=== PATIENT | female | born 1950 | race Caucasian/White ===

== ENCOUNTER 2021-07-18 06:06 | Day surgery (SDC) | payer MEDICARE, OTHER ==
[~2021-07-18] VITALS: Ht 160 cm; Wt 63.0 kg
[~2021-07-18 06:06] MED LIST: ALPR1TAB10 PO; BUSP5TAB PO; CITA40TA6 PO; CYCL1DRO OP; DONE-51 PO; HYDR50TA PO; HYDROmorphone 2 MG/ML INJ. IVP PRN; Hydrocodone/Acetaminophen PO; IV RINGERS,LACTATED 1000ML 1,000 ML IV SCH; LAMO200T25 PO; MIRT30TA93 PO; MORPHINE SULFATE 2 MG/ML INJ. IVP PRN; PROCHLORPERAZINE 10 MG/2 ML VIAL. IVP PRN; QUET300T5 PO; TRAV2.5D2 OP; ZOLP12.56 PO; ceFAZolin SODIUM IV Push 1 GM VIAL. IVP PRN; fentaNYL PF VIAL 100 MCG/2 ML VIAL IVP PRN
[2021-07-18] MEDS ORDERED: PROPOFOL 10 MG/ML (20ML) VIAL. IV ONE (06:46)
[2021-07-18] MEDS ORDERED: SUCCINYLCHOLINE 200 MG/10 ML VIAL. ONE (06:46)
[2021-07-18] MEDS ORDERED: LIDOCAINE 2% PF 5 ML VIAL. ONE (06:46)
[2021-07-18] MEDS ORDERED: ONDANSETRON PF 4 MG/2 ML VIAL. ONE (06:47)
[2021-07-18] MEDS ORDERED: fentaNYL PF VIAL 100 MCG/2 ML VIAL ONE ×2 (06:47→08:38)
[2021-07-18] MEDS ORDERED: SEVOFLURANE > 120 MINUTES. IH ONE (06:47)
[2021-07-18] MEDS ORDERED: DEXAMETHASONE SOD PHOS 4 MG/ML VIAL ONE (06:47)
[2021-07-18 06:53] VITALS: BP 140/69
[2021-07-18] MEDS ORDERED: BUPIVACAINE MPF 0.25% 30 ML VIAL. ONE (06:59)
[2021-07-18] MEDS ORDERED: GABA-585 PO (07:02)
[2021-07-18] MEDS ORDERED: FLUT1BLS3 IH (07:02)
[2021-07-18] MEDS ORDERED: ALEN70TA71 PO (07:02)
[2021-07-18] MEDS ORDERED: PANT20TA2 PO (07:02)
[2021-07-18] MEDS ORDERED: FEXO-213 PO (07:02)
[2021-07-18] MEDS ORDERED: ALBUTEROL SULFATE 2.5 MG/3 ML NEBU. NEB PRN (07:30)
--- NOTE | 2021-07-18 07:31 | PDOC1 ---
History and Physical Date of Admission Date of Admission DATE: 07/18/21 TIME: 07:21 Identification/Chief Complaint Chief Complaint Left foot pain Source Source: Patient History of Present Illness History of Present Illness Ms Chambers is a 71yo female with PMHx COPD, arthritis, anxiety who comes to the outpatient surgical center for definitive treatment of left great toe cellulitis and bunion. She has had left bunion deformity has been bothersome for the past 14 weeks and despite multiple rounds of antibiotics with her primary care physician Dr. Tse she had referral to podiatry for topical treatment and despite local wound care and offloading shoe she has continued to have pain and discomfort and erosion. She is being seen preoperatively for definitive surgical correction today. For her COPD she uses Trelegy inhaler daily and as needed albuterol and does wear oxygen at night and as needed when ambulating and does not require oxygen at rest. She does continue to smoke approximately 10 cigarettes a day. She has taken her albuterol inhaler this morning. She notes no prior problems with anesthesia does note a prior history of DVT and pulmonary embolism proximately 4 years ago was treated for 1 year on oral anticoagulants and taken off and has had no recurrence since does not know what provoked this. She does not know her family history as she was raised as a louise of the [facility]. Past Medical History Pulmonary: Bronchitis, COPD, Pulmonary embolus Psych: Anxiety, Schizophrenia Past Surgical History Past Surgical History: Cholecystectomy, Hernia Repair, Other (right shoulder arthroplasty) Family History Family History Reviewed Family History: Hypertension, Family History Unknown, Adopted Social History Smoke: <1 pack per day ALCOHOL: other (2 drinks per day) Drugs: None Current Medications Current Medications Current Medications Fentanyl Citrate (Fentanyl 2ml Vial) 25 mcg PRN Q5MIN PRN IVP MILD PAIN 1-3; Start 07/18/21 at 06:00; Stop 07/19/21 at 05:59 Fentanyl Citrate (Fentanyl 2ml Vial) 50 mcg PRN Q5MIN PRN IVP MODERATE PAIN 4- 6; Start 07/18/21 at 06:00; Stop 07/19/21 at 05:59 Morphine Sulfate (Morphine Sulfate) 1 mg PRN Q10MIN PRN IVP SEVERE PAIN 7-10; Start 07/18/21 at 06:00; Stop 07/19/21 at 05:59 Ringer's Solution 1,000 ml @ 30 mls/hr Q24H IV Last administered on 07/18/21at 07:07; Start 07/18/21 at 06:00; Stop 07/18/21 at 17:59 Hydromorphone HCl (Dilaudid) 0.5 mg PRN Q10MIN PRN IVP SEVERE PAIN 7-10, 2nd CHOICE; Start 07/18/21 at 06:00; Stop 07/19/21 at 05:59 Prochlorperazine Edisylate (Compazine) 5 mg PACU PRN PRN IVP NAUSEA, MRX1; Start 07/18/21 at 06:00; Stop 07/19/21 at 05:59 Cefazolin Sodium (Ancef) 1 gm PREOP PRN PRN IVP PREOP; Start 07/18/21 at 06:00; Stop 07/19/21 at 05:59 Propofol (Diprivan) 200 mg STK-MED ONCE IV ; Start 07/18/21 at 06:46; Stop 07/18/21 at 06:47; Status DC Lidocaine HCl (Lidocaine Pf 2% Vial) 5 ml STK-MED ONCE .ROUTE ; Start 07/18/21 at 06:46; Stop 07/18/21 at 06:47; Status DC Succinylcholine Chloride (Anectine) 200 mg STK-MED ONCE .ROUTE ; Start 07/18/21 at 06:46; Stop 07/18/21 at 06:47; Status DC Fentanyl Citrate (Fentanyl 2ml Vial) 100 mcg STK-MED ONCE .ROUTE ; Start 07/18/21 at 06:47; Stop 07/18/21 at 06:47; Status DC Ondansetron HCl (Zofran) 4 mg STK-MED ONCE .ROUTE ; Start 07/18/21 at 06:47; Stop 07/18/21 at 06:47; Status DC Dexamethasone Sodium Phosphate (Decadron) 4 mg STK-MED ONCE .ROUTE ; Start 07/18/21 at 06:47; Stop 07/18/21 at 06:47; Status DC Sevoflurane (Ultane) 90 ml STK-MED ONCE IH ; Start 07/18/21 at 06:47; Stop 07/18/21 at 06:47; Status DC Bupivacaine HCl (Sensorcaine Mpf 0.25%) 30 ml STK-MED ONCE .ROUTE ; Start 07/18/21 at 06:59; Stop 07/18/21 at 07:00; Status DC Active Scripts Active Reported Protonix (Pantoprazole Sodium) 20 Mg Tablet.dr 40 Mg PO DAILY Gabapentin (Gabapentin) 100 Mg Capsule 100 Mg PO TID Alendronate Sodium 70 Mg Tablet 70 Mg PO WEEKLY Fexofenadine Hcl 180 Mg Tablet 180 Mg PO DAILY Trelegy Ellipta 100-62.5-25 (Fluticasone/Umeclidin/Vilanter) 1 Each Blst.w.dev 1 Each IH DAILY Alprazolam 1 Mg Tab.rapdis 1 Mg PO Buspirone Hcl 5 Mg Tablet 10 Mg PO TID Lamotrigine 200 Mg Tab.er.24 200 Mg PO BID Restasis (Cyclosporine) 1 Each Droperette 1 Each OP Seroquel (Quetiapine Fumarate) 300 Mg Tablet 300 Mg PO Travoprost 0.004% Eye Drop (Travoprost) 2.5 Ml Drops 2.5 Ml OP Allergies Allergies: Coded Allergies: No Known Drug Allergies (Unverified , 07/18/21) ROS General: No: Chills, Night Sweats, Fatigue, Malaise, Appetite, Other PSYCHOLOGICAL ROS: No: Anxiety, Behavioral Disorder, Concentration difficultie, Decreased libido, Depression, Disorientation, Hallucinations, Hostility, Irritablity, Memory difficulties, Mood Swings, Obsessive thoughts, Physical abuse, Sexual abuse, Sleep disturbances, Suicidal ideation, Other Eyes: No Blurry vision, No Decreased vision, No Double vision, No Dry eyes, No Excessive tearing, No Eye Pain, No Itchy Eyes, No Loss of vision, No Deirdre tophobia, No Scotomata, No Uses contacts, No Uses glasses, No Other HEENT: No: Heacaches, Visual Changes, Hearing change, Nasal congestion, Nasal discharge, Oral lesions, Sinus pain, Sore Throat, Epistaxis, Sneezing, Snoring, Tinnitus, Vertigo, Vocal changes, Other ALLERGY AND IMMUNOLOGY: No: Hives, Insect Bite Sensitivity, Itchy/Watery Eyes, Nasal Congestion, Post Nasal Drip, Seasonal Allergies, Other Hematological and Lymphatic: YES: Blood Clots; No: Bleeding Problems, Blood Transfusions, Brusing, Night Sweats, Pallor, Swollen Lymph Nodes, Other ENDOCRINE: No: Breast Changes, Galactorrhea, Hair Pattern Changes, Hot Flashes, Malaise/lethargy, Mood Swings, Palpitations, Polydipsia/polyuria, Skin Changes, Temperature Intolerance, Unexpected Weight Changes, Other Breast: No New/Changing Breast Lumps, No Nipple changes, No Nipple discharge, No Other Respiratory: YES: SOB with excertion; No: Cough, Hemoptysis, Orthopnea, Pleuritic Pain, Shortness of breath, Sputum Changes, Stridor, Tachypnea, Wheezing, Other Cardiovascular: No Chest Pain, No Palpitations, No Orthopnea, No Paroxysmal Noc. Dyspnea, No Edema, No Lt Headedness, No Other Gastrointestinal: No Nausea, No Vomiting, No Abdominal Pain, No Diarrhea, No Constipation, No Melena, No Hematochezia, No Other Genitourinary: No Dysuria, No Frequency, No Incontinence, No Hematuria, No Retention, No Discharge, No Urgency, No Pain, No Flank Pain, No Other, No , No , No , No , No , No , No Musculoskeletal: Yes Gait Disturbance, Yes Joint Pain, Yes Joint Stiffness; No Joint Swelling, No Muscle Pain, No Muscular Weakness, No Pain In:, No Swelling In:, No Other Neurological: No Behavorial Changes, No Bowel/Bladder ControlChng, No Confusion, No Dizziness, No Gait Disturbance, No Headaches, No Impaired Coord/balance, No Memory Loss, No Numbness/Tingling, No Seizures, No Speech Problems, No Tremors, No Visual Changes, No Weakness, No Other Skin: Yes Rash, Yes Skin Lesion Changes; No Dry Skin, No Eczema, No Hair Changes, No Lumps, No Mole Changes, No Mottling, No Nail Changes, No Pruritus, No Other, No Acne Physical Exam General: Alert, Oriented X3, Cooperative, No acute distress HEENT: Atraumatic, PERRLA, EOMI, Mucous membr. moist/pink Lungs: Other (Bilateral scattered wheezes) Heart: S1S2, RRR, no thrills, no rubs, no gallops, no murmurs Abdomen: Normal bowel sounds, Soft, No tenderness, No hepatosplenomegaly, No masses Extremities: No clubbing, No cyanosis, No edema, Other (Decreased pulses) Skin: Other (Left medial MTP joint ulceration with scabbing approximately half by 1 cm) Neuro: Normal speech, Strength at 5/5 X4 ext, Normal tone, Sensation intact, Cranial nerves 3-12 NL, Reflexes 2+ Psych/Mental Status: Mental status NL, Mood NL Vitals Vitals Vital Signs Date Time Temp Pulse Resp B/P (MAP) Pulse Ox O2 Delivery O2 Flow Rate FiO2 07/18/21 06:56 98.8 93 24 140/69 91 Room Air 98.8 VTE Prophylaxis Ordered VTE Prophylaxis Devices: Yes VTE Pharmacological Prophylaxi: No Assessment/Plan Assessment/Plan Left foot ulcer -bunion left first MTP joint. No further testing prior to planned surgical correction COPD -on home O2 as needed and trilogy inhaler. Albuterol inhaler.. Nebs Smoker -counseled on cessation and offered nicotine replacement therapy she is currently not interested in quitting. History of pulmonary embolism -unknown if provoked. Unknown family history. She is not had recurrence. FEN - NPO PPX - SCDs FULL CODE Dispo -outpatient surgery. Call [phone] if patient necessitates admission to the hospital otherwise discharge home with self-care follow-up with surgery Justifications for Admission Other Justification BANG PURI MD Jul 18, 2021 07:31
[2021-07-18] MEDS ORDERED: PHENYLEPHRINE in 0.9% NACL PF 1 MG/10 ML SYRINGE. IV ONE (08:55)
[2021-07-18] MEDS ORDERED: ePHEDrine PF IN SALINE 50 MG/10 ML SYRINGE. IV ONE (08:55)
--- NOTE | 2021-07-18 09:40 | PDOC4 ---
OPERATIVE NOTE Date: Date: Jul 18, 2021 Pre-Op Diagnosis: Left bunion with subsequent mechanical irritation to the medial metatarsal eminence Post-Op Diagnosis: Same as above Procedure Performed: Left minimal invasive bunion osteotomy, Stefano osteotomy Surgeon: Aimee Arshad DPM Anesthesia Type: General Blood Loss: 5 cc Specimans Obtained: None Findings: Prominent first medial metatarsal head with a lateral subluxed to hallux abutting the second digit. There is a preulceration to the medial first metatarsal head without any open lesion, fluctuance or drainage. Relatively soft bone quality throughout. Complications: None Operative Note: Under mild sedation, patient was brought into the operating room and placed on the operative table in a supine position. A formal timeout was performed to confirm patient's identity, procedure and procedure site. Following IV antibiotics and general anesthesia, a well-padded high ankle tourniquet was applied. Following Betadine skin prep, 9 cc of 0.2% Marcaine plain was infiltrated in a Gonzales block fashion to the distal first ray. The left lower extremity was then prepped, scrubbed and draped using aseptic techniques. The tourniquet was not inflated. Using intraoperative x-ray, a provisional osteotomy approximately 5 mm proximal to the sesamoids, aiming perpendicular to the second metatarsal shaft was marked. The central axial position of the first metatarsal and first TMT and first MTPJ were marked on lateral view. Then a 5 mm stab incision was made at the provisional osteotomy site on the lateral first metatarsal neck. The incision was carried deep to the periosteum layer with blunt dissection with care to protect the neurovascular bundles. Before osteotomy, the tourniquet was deflated. Then a 2 x 19.5 mm straight MIS bur was used to complete the osteotomy at the level of the first metatarsal neck aiming perpendicular to the second metatarsal shaft using intraoperative x-ray guidance. After the capital fragment was freed and mobilized, a jig was used to laterally translate the capital fragment to reduce the first metatarsal angle to under 8 degrees. Then using standard AO techniques, One 4.0 mm and one 3.0 mm fully threaded screws were placed from the medial proximal first metatarsal shaft to the capital fragment with goals to capture bicortical at the proximal first metatarsal shaft. Care was taken to protect the soft tissue neurovascular bundles at the medial surface of the first metatarsal near the screw placement sites. Intraoperative x-ray noted adequate hardware position, length without violating the first MTPJ. On the lateral view, the hardware was central to the first metatarsal shaft. At this time, intraoperative exam remarked slight overlap between the hallux and second digit and then the decision was made to perform an Stefano osteotomy. Then a 5 mm stab incision was made at the medial surface of the proximal hallux. The incision was carried deep using blunt dissection to the periosteum layer. Then a straight bur was used to complete the osteotomy aiming towards the lateral base of proximal hallux while preserving the lateral hinge. A small medially based wedge was removed and easy osteotomy apposition and reduction of the deformity was noted with 2 finger manipulation technique. Then using standard AO technique, a 3.0 millimeter screw was used to affix the osteotomy site. Intraoperative x-ray noted adequate hardware placement, position, reduction of the DASA deformity. All the hardware and osteotomy sites were away from the p reulceration site and the medial first metatarsal head. All the surgical sites were irrigated with copious saline solution. The surgical sites were closed with 4-0 nylon. The surgical sites were dressed with Xeroform, 4 x 4, Kerlix, ABD. The left lower extremity was immobilized in a well-padded Chiang compression splint with ankle held at 90 degrees. Adequate digital perfusion was noted after surgery. Patient tolerated the procedure and anesthesia well with vital signs stable and neurovascular status intact. Patient was then transferred to PACU for continuous recovery. Pending surgical foot x-ray 3 view. AIMEE ARSHAD DPM Jul 18, 2021 09:40
[2021-07-18] MEDS ORDERED: ACETAMINOPHEN 325 MG TABLET. PO ONE (09:45)
[2021-07-18] MEDS ORDERED: oxyCODONE/APAP 5/325 1 TAB TABLET PO ONE (09:45)
[2021-07-18] MEDS ORDERED: GABAPENTIN 100 MG CAPSULE. PO ONE (09:45)
[2021-07-18 10:30] VITALS: BP 186/68
--- NOTE | 2021-07-18 10:57 | RAD ---
Exam: XR FOOT_LEFT 3 VIEWS History: Postop Comparison: None. FINDINGS AND IMPRESSION: Decreased osseous mineralization. Splint material limits visualization of detail. There are postsurgi richardson changes from first metatarsal and proximal first toe phalanx osteotomies with cannulated screw fi xation. Electronically signed by: Vj Doty MD (07/18/2021 10:55 AM) [id number]
== END 2021-07-18 12:12 | disposition home or self-care (01) ==
LOC: SURG 06:06
PROVIDERS: ATTEND Podiatrist
DX: M21.612 Bunion of left foot (principal); L89.891 Pressure ulcer of other site, stage 1; J44.9 Chronic obstructive pulmonary disease, unspecified; F41.9 Anxiety disorder, unspecified; F32.9 Major depressive disorder, single episode, unspecified; F17.210 Nicotine dependence, cigarettes, uncomplicated; Z90.49 Acquired absence of other specified parts of digestive tract; Z98.51 Tubal ligation status; Z98.890 Other specified postprocedural states; Z88.8 Allergy status to other drugs, medicaments and biological substances
CPT/HCPCS: 28295; 28298; 28299; 73630; 94640; 97116; 97162; J0330; J0690; J1100; J2370; J2405; J2704; J3010; J3490; J7613; A4657; A4930; A6253; A6402; A6449; A6450; A6454; C1776